=== PATIENT | female | born 1995 | race Caucasian/White ===

== ENCOUNTER 2017-02-16 07:41 | Emergency (ER) | payer OTHER ==
[~2017-02-16] VITALS: Ht 144.8 cm; Wt 43.5 kg
[2017-02-16 09:27] VITALS: BP 105/66
== END 2017-02-16 09:27 | disposition home or self-care (01) ==
LOC: ED 07:41
DX: B30.9 Viral conjunctivitis, unspecified (principal); J06.9 Acute upper respiratory infection, unspecified; J45.909 Unspecified asthma, uncomplicated

== ENCOUNTER 2017-02-21 06:35 | Emergency (ER) | payer OTHER ==
[2017-02-21 07:08] VITALS: BP 119/91
== END 2017-02-21 07:08 | disposition home or self-care (01) ==
LOC: ED 06:35
DX: J45.901 Unspecified asthma with (acute) exacerbation (principal); J06.9 Acute upper respiratory infection, unspecified

== ENCOUNTER 2017-03-15 05:21 | Emergency (ER) | payer OTHER ==
[2017-03-15 08:30] LABS: UA SPECIFIC GRAVITY >=1.030 (1.005-1.035); microscopic required? YES; urine erythrocyte NEGATIVE (NEGATIVE)
[2017-03-15 08:50] VITALS: BP 111/67
== END 2017-03-15 08:50 | disposition home or self-care (01) ==
LOC: ED 05:21
PROVIDERS: Emergency Medicine
DX: A59.01 Trichomonal vulvovaginitis (principal)
CPT/HCPCS: 87491; 87591

== ENCOUNTER 2017-09-19 16:39 | Emergency (ER) | payer OTHER ==
[~2017-09-19] VITALS: Ht 144.8 cm; Wt 42.2 kg
[2017-09-19 16:46] VITALS: BP 105/70
== END 2017-09-19 18:02 | disposition left against medical advice (07) ==
LOC: ED 16:39
DX: Z53.21 Procedure and treatment not carried out due to patient leaving prior to being seen by health care provider (principal)

== ENCOUNTER 2017-09-19 18:21 | Emergency (ER) | payer OTHER ==
[~2017-09-19] VITALS: Ht 144.8 cm; Wt 42.2 kg
[2017-09-19 18:32] VITALS: BP 106/65
== END 2017-09-19 22:02 | disposition home or self-care (01) ==
LOC: ED 18:21
DX: N39.0 Urinary tract infection, site not specified (principal); G43.909 Migraine, unspecified, not intractable, without status migrainosus; J45.909 Unspecified asthma, uncomplicated; N94.6 Dysmenorrhea, unspecified
CPT/HCPCS: J0696; J1885; Q0162

== ENCOUNTER 2017-10-11 03:57 | Emergency (ER) | payer OTHER ==
[2017-10-11 04:14] VITALS: BP 105/73
== END 2017-10-11 05:10 | disposition left against medical advice (07) ==
LOC: ED 03:57
DX: Z53.21 Procedure and treatment not carried out due to patient leaving prior to being seen by health care provider (principal)

== ENCOUNTER 2017-10-12 14:57 | Emergency (ER) | payer OTHER ==
[2017-10-12 14:59] VITALS: BP 135/89
== END 2017-10-12 16:04 | disposition home or self-care (01) ==
LOC: ED 14:57
DX: J02.9 Acute pharyngitis, unspecified (principal); G43.909 Migraine, unspecified, not intractable, without status migrainosus; K04.01 Reversible pulpitis; J45.909 Unspecified asthma, uncomplicated
CPT/HCPCS: J1885; J2765

== ENCOUNTER 2017-10-25 08:25 | Emergency (ER) | payer OTHER ==
[~2017-10-25] VITALS: Ht 144.8 cm; Wt 42.2 kg
[2017-10-25 11:45] VITALS: BP 97/56
== END 2017-10-25 11:45 | disposition home or self-care (01) ==
LOC: ED 08:25
DX: S29.012A Strain of muscle and tendon of back wall of thorax, initial encounter (principal); W18.39XA Other fall on same level, initial encounter; Y93.02 Activity, running; Y92.89 Other specified places as the place of occurrence of the external cause; Y99.8 Other external cause status; N39.0 Urinary tract infection, site not specified
CPT/HCPCS: J0696; J1885

== ENCOUNTER 2018-01-06 02:23 | Emergency (ER) | payer OTHER ==
[~2018-01-06] VITALS: Ht 144.8 cm; Wt 43.1 kg
[2018-01-06 02:28] VITALS: Ht 144.8 cm; Wt 43.1 kg
[2018-01-06 02:55] VITALS: BP 119/76
== END 2018-01-06 02:55 | disposition home or self-care (01) ==
LOC: ED 02:23
DX: M54.2 Cervicalgia (principal)

== ENCOUNTER 2018-02-21 18:37 | Emergency (ER) | payer OTHER ==
[~2018-02-21] VITALS: Ht 144.8 cm; Wt 43.5 kg
[2018-02-21 19:17] VITALS: Ht 144.8 cm; Wt 43.5 kg
[2018-02-21 21:36] LABS: BASOPHIL % 0.3 % (0-2); PLATELET COUNT 246 x10^3mcL (130-400); RED CELL DISTRIBUTION WIDTH 15.5 % (11.5-14.5)
[2018-02-21 21:57] LABS: microscopic required? YES; urine erythrocyte NEGATIVE (NEGATIVE)
[2018-02-21 22:07] LABS: CALCIUM 8.3 mg/dL (8.5-10.1); CARBON DIOXIDE 28.7 mmol/L (21-32); CHLORIDE SERUM 103 mmol/L (98-107); CREATININE SERUM 0.8 mg/dL (0.6-1.0); GFR1 > 60 mL/min; GLUCOSE SERUM 105 mg/dL (74-106); POTASSIUM SERUM 3.9 mmol/L (3.5-5.1); SODIUM SERUM 135 mmol/L (136-145)
[2018-02-21 22:28] VITALS: BP 108/72
== END 2018-02-21 23:41 | disposition home or self-care (01) ==
LOC: ED 18:37
PROVIDERS: Emergency Medicine
DX: N39.0 Urinary tract infection, site not specified (principal); R07.81 Pleurodynia; J45.909 Unspecified asthma, uncomplicated
CPT/HCPCS: 36415

== ENCOUNTER 2018-12-01 11:15 | Emergency (ER) | payer OTHER ==
[~2018-12-01] VITALS: Ht 144.8 cm; Wt 40.5 kg
[2018-12-01 11:18] VITALS: BP 133/86; Ht 144.8 cm; Wt 40.5 kg
== END 2018-12-01 12:49 | disposition home or self-care (01) ==
LOC: ED 11:15
DX: K02.9 Dental caries, unspecified (principal); K08.89 Other specified disorders of teeth and supporting structures; J45.909 Unspecified asthma, uncomplicated
CPT/HCPCS: J1885

== ENCOUNTER 2019-02-15 12:02 | Emergency (ER) | payer OTHER ==
[~2019-02-15] VITALS: Ht 144.8 cm; Wt 42.2 kg
[2019-02-15 12:04] VITALS: Ht 144.8 cm; Wt 42.2 kg
[2019-02-15 12:33] LABS: BASOPHIL % 0.3 % (0-2); PLATELET COUNT 244 x10^3mcL (130-400)
[2019-02-15 12:36] LABS: CALCIUM 8.3 mg/dL (8.5-10.1); CARBON DIOXIDE 30.5 mmol/L (21-32); CHLORIDE SERUM 103 mmol/L (98-107); CREATININE SERUM 0.9 mg/dL (0.6-1.0); GFR1 > 60 mL/min; GLUCOSE SERUM 126 mg/dL (74-106); POTASSIUM SERUM 4.2 mmol/L (3.5-5.1); SODIUM SERUM 138 mmol/L (136-145)
[2019-02-15 12:41] LABS: ALKALINE PHOSPHATASE 154 U/L (46-116); ALT/SGPT 68 U/L (14-59); AST/SGOT 45 U/L (15-37); TOTAL PROTEIN, SERUM 6.9 g/dL (6.4-8.2)
[2019-02-15 12:51] LABS: RED CELL DISTRIBUTION WIDTH 17.6 % (11.5-14.5)
[2019-02-15 12:54] LABS: ALBUMIN 2.7 g/dL (3.4-5.0)
[2019-02-15 13:27] VITALS: BP 107/60
[2019-02-15 13:29] LABS: BILIRUBIN TOTAL 0.55 mg/dL (0.20-1.00)
== END 2019-02-15 13:27 | disposition home or self-care (01) ==
LOC: ED 12:02
PROVIDERS: Emergency Medicine
DX: J18.9 Pneumonia, unspecified organism (principal); R74.0 Nonspecific elevation of levels of transaminase and lactic acid dehydrogenase [LDH]; J45.909 Unspecified asthma, uncomplicated; Z86.2 Personal history of diseases of the blood and blood-forming organs and certain disorders involving the immune mechanism
CPT/HCPCS: 36415; 87804; Q0092

== ENCOUNTER 2019-02-16 05:36 | Inpatient (IN) | payer OTHER ==
[~2019-02-16] VITALS: Ht 144.8 cm; Wt 44.7 kg
[2019-02-16 05:39] VITALS: Ht 144.8 cm; Wt 44.7 kg
--- NOTE | 2019-02-16 05:44 | NUR ---
PATIENT WAS BROUGHT IN BY EMS WITH COMPLAINT OF SHORTNESS OF BREATH AND COUGHING. PATIENT SEEN WITH BREATHING TREATMENT IN [facility] AND COUGHING , NON PRODUCTIVE COUGH.
--- NOTE | 2019-02-16 05:48 | NUR ---
PATIENT SEEN WITH COMPLAINT OF SHORTNESS OF BREATH. PATIENT REPORTS SHE WAS SEEN BY MD AND DX PNEUMONIA AND WAS STARTED ON ANTIBIOTIC YESTERDAY. MD AT THE BEDSIDE.
--- NOTE | 2019-02-16 06:12 | NUR ---
PORTABLE CHEST XRAY WAS DONE. DOCK SUPERINTENDENT AT THE BEDSIDE, BLOOD AND BLOOD CULTURES WERE DONE. PATIENT CONTINUE TO HAVE FREQUENT BOUTS OF COUGHING. OXYGEN SAT DROPS WHEN COUGHING. PATIENT DOES NOT WANT THE NASAL CANNULAR, 6 L O2 GIVEN VIA THE MASK.
[2019-02-16 06:30] LABS: BASOPHIL % 0.2 % (0-2); PLATELET COUNT 258 x10^3mcL (130-400)
[2019-02-16 06:48] LABS: CALCIUM 8.9 mg/dL (8.5-10.1); CARBON DIOXIDE 27.7 mmol/L (21-32); CHLORIDE SERUM 107 mmol/L (98-107); CREATININE SERUM 0.9 mg/dL (0.6-1.0); GFR1 > 60 mL/min; GLUCOSE SERUM 116 mg/dL (74-106); POTASSIUM SERUM 4.5 mmol/L (3.5-5.1); SODIUM SERUM 141 mmol/L (136-145)
[2019-02-16 06:52] LABS: ALKALINE PHOSPHATASE 145 U/L (46-116); ALT/SGPT 62 U/L (14-59); AST/SGOT 42 U/L (15-37); BILIRUBIN TOTAL 0.42 mg/dL (0.20-1.00); TOTAL PROTEIN, SERUM 6.6 g/dL (6.4-8.2)
[2019-02-16 06:58] LABS: ALBUMIN 2.5 g/dL (3.4-5.0)
--- NOTE | 2019-02-16 06:58 | NUR ---
Pt SPO2 80% ON RA, HHN TX ADMINISTERED AND ABG DRAWN. WILL ENDORSE TO DAY SHIFT RT. RN AT BEDSIDE. PERSISTENT NON PRODUCTIVE COUGH NOTED.
[2019-02-16 07:05] LABS: C REACTIVE PROTEIN 7.6 mg/dL (<=0.9)
[2019-02-16 07:08] LABS: CK-MB 0.5 ng/mL (0-3.6)
--- NOTE | 2019-02-16 07:08 | NUR ---
SALINE BOLUS IS INFUSING, ANTIBUIOTIC IS INFUSING. BREATHING TREATMENT IS IN PROGRESS.
[2019-02-16 07:09] LABS: RED CELL DISTRIBUTION WIDTH 17.5 % (11.5-14.5)
--- NOTE | 2019-02-16 07:15 | NUR ---
RECIEVED REPORT TO CONTINUE CARE FROM DILAN DOMINGO.
[2019-02-16 07:20] LABS: T3 TOTAL 0.87 ng/mL
[2019-02-16 07:21] LABS: FREE T4 1.1 ng/dL (0.76-1.46); FREE THYROXINE INDEX 2.4 ug/dL (1.4-4.5)
[2019-02-16 08:31] LABS: MAGNESIUM 1.7 mg/dL (1.8-2.4); PHOSPHOROUS 2.9 mg/dL (2.5-4.9)
[2019-02-16 08:32] LABS: CHOLESTEROL/HDL RATIO 5.1
--- NOTE | 2019-02-16 08:55 | NUR ---
PATIENT SITTING UPRIGHT ON GURNEY- BREATHING EVEN AND LABORED. PATIENT DENIES WANTING TO PLACE 02 BACK ON. ADVISED PATIENT THAT I NEEDED A URINE SAMPLE. UNABLE TO PROVIDE AT THIS TIME. WILL CONTINUE TO MONITOR. SIDE RAILS UP, GURNEY IN LOW POSITION.
--- NOTE | 2019-02-16 09:05 | NUR ---
CALLED FOR RESPIRTORY PER DR. TOLENTINO FOR BIPAP. RESPIRATORY BEDSIDE APPLYING MASK.
--- NOTE | 2019-02-16 09:50 | NUR ---
PATIENT RESTING SINCE BIPAP WAS APPLIED. WILL CONTINUE TO MONITOR.
--- NOTE | 2019-02-16 10:31 | NUR ---
PATIENT RESTING COMFORTABLY- WILL CONTINUE TO MONITOR.
--- NOTE | 2019-02-16 11:28 | NUR ---
ADMITTING MD AT BEDSIDE FOR H&P.
--- NOTE | 2019-02-16 11:59 | NUR ---
PATIENT ABLE TO SPEAK WITH FULL SENTENCES, TRIAL WITHOUT BIPAP AND IS TOLERATING ROOM AIR AT THIS TIME, VERBALIZED FEELING BETTER, NO S/SOF ACUTE DISTRESS NOTED. WILL CONTINUE TO MONITOR
--- NOTE | 2019-02-16 12:54 | NUR ---
PATIENT FINISHED EATING LUNCH. BREATHING EVEN AND UNLABORED. NO S/S OF DISTRESS NOTED. WILL CONTINUE TO MONITOR.
--- NOTE | 2019-02-16 14:15 | NUR ---
RECEIVED REPORT FROM CHRISTY KONG
--- NOTE | 2019-02-16 14:16 | NUR ---
PROVIDED REPORT TO DILAN KAMARA FOR CONTINUED CARE OF PATIENT.
[2019-02-16 14:43] VITALS: BP 90/37
--- NOTE | 2019-02-16 14:47 | NUR ---
RECEIVED PT FROM ED VIA OLGA. ORIENTED PT TO ROOM AND SURROUNDINGS. IV NOTED TO LAC PATENT AND INTACT. TELE 4 PLACED ON PT READING NSR. INSTRUCTED PT ON THE USE OF CALL LIGHT FOR ASSISTANCE. ENDORSED PT TO PRIMARY NURSE ASAD
--- NOTE | 2019-02-16 15:08 | NUR ---
PT SITTING UP IN BED IN HIGH FOWLERS. RESPIRATIONS EQUAL AND UNLABORED ON 3L NC. PT STATES NC IS HELPING WITH BREATHING. PT STATES SHE FEELS DROWSY. DR. HOLBROOK AT BEDSIDE. WILL CONTINUE TO MONITOR. CALL LIGHT IN REACH. BED IN LOWEST POSITION.
--- NOTE | 2019-02-16 15:18 | NUR ---
PT SITTING UP IN BED. DROWSY BUT AROUSABLE TO VOICE. GIVEN MUCINEX PO. TOLERATED WELL. RESPIRATIONS EQUAL AND UNLABORED ON 3L NC. PT STATES SOB HAS IMPROVED SINCE BEING PLACED ON NC. WILL CONTINUE TO MONITOR. CALL LIGHT IN REACH. BED IN LOWEST POSITION.
[2019-02-16 15:51] VITALS: BP 90/37
--- NOTE | 2019-02-16 17:25 | NUR ---
PT SITTING UP IN BED. RESPIRATIONS EQUAL AND UNLABORED ON 3L NC. PT SOB WITH WALKING TO BATHROOM. PLACED BACK ON NC 3L. PT STATES SHE JUST FEELS SOB WHEN WALKING AND TALKING. IV TO LAC FLUSHED WELL. IV ANTIBIOTICS INFUSING ORDERED. GIVEN PO MEDS. TOLERATED WELL. WILL CONTINUE TO MONITOR. CALL LIGHT IN REACH. BED IN LOWEST POSITION.
--- NOTE | 2019-02-16 19:20 | NUR ---
RECEIVED REPORT FROM ASAD KONG. ASSUMING ALL CARE
--- NOTE | 2019-02-16 19:47 | NUR ---
RECEIVED PT LAYING IN BED. PT IS A/OX4. DROWSY AT THIS TIME. ABLE TO FOLLOW COMMANDS. PERRLA NOTED BILAT. EENT FREE OF DISCHARGE. ORAL MUCOSA PINK AND MOIST. NO JVD NOTED. BREATHING IS E/U ON 3 L NC. LUNGS SOUND CLEAR TO BUL AND DIMIN TO BLL. SYMMETRICAL CHEST EXPANSION NOTED. DENIES ANY SOB. PT ON TELE #4 READING NSR. S1/S2 HEART SOUNDS AUSCULTATED. CHEST WALL EQUAL AND SYMMETRICAL. DENIES CP. PALPABLE PULSES X4 EXTREMITIES. SKIN IS WARM AND DRY. LAC IV SALINE LOCKED. NO EDEMA NOTED. SLIGHT GENERALIZED WEAKNESS. ACTIVE FULL ROM X4 EXTRIMITIES. NO JOINT SWELLING/DEFORMITY NOTED. PT IS ON REGULAR DIET. NO N/V NOTED. ABD IS SOFT, FLAT, NONTENDER TO PALPATION. BOWEL SOUNDS ACTIVE X4 QUADRANTS. NO BM NOTED. PT VOIDS FREELY. NO LABIAL EDEMA OR VAGINAL DISCHARGE NOTED. PT MADE AWARE A URINE SAMPLE IS STILL NEEDED, PT VERBALIZED UNDERSTANDING. SKIN IS INTACT. PT ABLE TO REPOSITION SELF INDEPENDENTLY. PT IS CALM AT THIS TIME. BED IN LOW POSITION. CALL LIGHT IN REACH. WILL CONT TO MONITOR
[2019-02-16 20:30] VITALS: BP 93/50
--- NOTE | 2019-02-16 23:15 | NUR ---
PT IS SLEEPING, EASILY AROUSABLE. RISE AND FALL OF CHEST NOTED. PT ON 3 L NC. NO S/S OF RESP DISTRESS NOTED. BED IN LOW POSITION. CALL LIGHT IN REACH. WILL CONT TO MONITOR
--- NOTE | 2019-02-17 02:00 | NUR ---
RISE AND FALL OF CHEST NOTED. NO S/S OF ACUTE DISTRESS NOTED. IV REMAINS SALINE LOCKED. BREATHING IS E/U ON 3 L NC. WILL CONT TO MONITOR
--- NOTE | 2019-02-17 05:35 | NUR ---
PT IS SLEEPING, AROUSABLE. PT ON 3 L NC STATTING 100%. NO S/S OF RESP DISTRESS NOTED. RISE AND FALL OF CHEST NOTED. IV REMAINS SALINE LOCKED. NO S/S OF ACUTE DISTRESS NOTED. BED IN LOW POSITION. CALL LIGHT IN REACH. WILL CONT TO MONITOR
[2019-02-17 05:50] VITALS: BP 95/47
--- NOTE | 2019-02-17 07:05 | NUR ---
REPORT GIVEN TO KAELYN KONG FOR CONTINUITY OF CARE. ALL QUESTIONS/CONCERNS ADDRESSED. ENDORSING ALL CARE
[2019-02-17 07:30] LABS: CALCIUM 8.3 mg/dL (8.5-10.1); CHLORIDE SERUM 106 mmol/L (98-107); CREATININE SERUM 0.8 mg/dL (0.6-1.0); GFR1 > 60 mL/min; GLUCOSE SERUM 148 mg/dL (74-106); POTASSIUM SERUM 4.5 mmol/L (3.5-5.1); SODIUM SERUM 140 mmol/L (136-145)
[2019-02-17 07:38] LABS: BASOPHIL % 0.2 % (0-2); PLATELET COUNT 230 x10^3mcL (130-400)
--- NOTE | 2019-02-17 08:00 | NUR ---
RECEIVED PATIENT SLEEPY BUT ARROUSABLE. STILL WITH DRY UNPRODUCTIVE COUGH AND HAS BEE OON IV ANTIBIOTICS AND LASIX AND SOLUMEDROL. THE WBC THIS AM AT 14 AND ADVIWSD THE RESIDENT OF THIS. PATIENT AHS BEEN ON ZOAYN AND NO ADVERSE REACTION SEEN. VITALS AT THIS TIME AT 98.0, S60, 18, 98/47, 100%. PATIENT AHS BEEN WITH GLUCOSE AT 148, ESR AT 36, CA AT 8.3. THE MAGNESIUM WAS COVERED. SHE DENIES PAIN AND ENCOURAGED FLUIDS AND DEEP BREATHING TOLERATED. PATIENT HAS BILATERAL PULMONARY LUNG INFILTRAES AND IT IS BETTER TO THE RIGHT THAN TO THE LEFT.
--- NOTE | 2019-02-17 09:00 | NUR ---
INFORMED THE HEAD OF MOBILE OF THE WBC PER THE SEPSIS PROTOCAL. AWAITING ANY ORDERS AT THIS TIME. THE HEAD OF MOBILE DOES NOT SEEM CONCERNED AT THIS TIME THE PATIENT HAS BEEN WITH NO FEVER AND HAD BEEN TAKING IN FLUIDS. WILL CONTINUE TO MONITOR .
--- NOTE | 2019-02-17 10:34 | NUR ---
PATIENT OOB AND WITH A DRY COUGH AT THIS TIME. WAS SEEN BY THE RESIDENT AND THE DR SEBASTIAN. PATIENT HAS BEEN WITH CRY COUGH AND ENCOURAT3 TO DEEP BREATH AND DRINK FLUIDS. HHN CONTINUED AND PATIENT HAS BEEN NOTED TO HAVE BILATERAL PNUMEUMONIA. PATIENT HAS BEEN ON IV ANTIBIOTICS AND SO FAR NO ADVERSE REACTION. RECEIVED URINE FROM THE PATIENT AND MELINDA SEND TO THE LAB INDICATED.
[2019-02-17 13:31] LABS: RED CELL DISTRIBUTION WIDTH 18.4 % (11.5-14.5)
[2019-02-17 14:21] VITALS: BP 91/46
--- NOTE | 2019-02-17 15:00 | NUR ---
YOUNG MALE AT [facility] AND SUPPORTIVE WITH CARE. THE GRANDMOTHER CALLED AND ADVISE SALVADOR MCGUIRE. SHE HAS BEEN SLEEPING ON AND OFF. SHE ATE SOME AND FELL ASLEEP WHILE EATTING SEVERAL TIMES. NO COMPLAINTS OF PAIN AND CONTINUED ON IV ANTIBIOTICS WITH NO ADVERSE REACTION.
--- NOTE | 2019-02-17 15:02 | NUR ---
ATE SOME OF THE AFTERNOON MEAL AND ENCOURAGE TO DRINK PLENTY OF FLUIDS. THE COUGH IS STILL NON PRODUCTIVE..
[2019-02-17 15:33] LABS: microscopic required? NO
[2019-02-17 15:48] LABS: UA SPECIFIC GRAVITY 1.025 (1.005-1.035); urine erythrocyte NEGATIVE (NEGATIVE)
[2019-02-17 16:24] LABS: AMPHETAMINE QUAL UR POSITIVE (See below)
[2019-02-17 17:21] VITALS: BP 84/34
--- NOTE | 2019-02-17 17:59 | NUR ---
GIVING BOLUS THE BP IS SO LOW. ORDERED A LITER BOLUS. PATIENT SO FAR TOLERATED WELL.
--- NOTE | 2019-02-17 20:04 | NUR ---
Resting in bed with eyes closed. Verbally responsive. No respiratory distress noted on 02 2lpm via n/c. Denies n/v. Denies pain at this time. Will cont.to monitor. Call light within reach. Friend visiting.
[2019-02-17 22:24] VITALS: BP 105/47
--- NOTE | 2019-02-18 05:04 | NUR ---
Afebrile. No significant change in condition noted. Denies pain. No cough or congestion noted. Cont.on IV zosyn. Ambulating. In no apparent distress.
[2019-02-18 05:58] LABS: PLATELET COUNT 251 x10^3mcL (130-400)
[2019-02-18 06:37] LABS: RED CELL DISTRIBUTION WIDTH 18.2 % (11.5-14.5)
[2019-02-18 06:39] LABS: CHLORIDE SERUM 106 mmol/L (98-107); CREATININE SERUM 0.8 mg/dL (0.6-1.0); GFR1 > 60 mL/min; GLUCOSE SERUM 156 mg/dL (74-106); POTASSIUM SERUM 4.3 mmol/L (3.5-5.1); SODIUM SERUM 139 mmol/L (136-145)
--- NOTE | 2019-02-18 08:00 | NUR ---
RECEIVED PATIENT ALERT AND ALBEL TO MAKE NEEDS KNOWN. SHE IS STILL ON AND OFF SLEEPY BUT SHE IS MUCH MORE RESPONSIVE TODAY. LUNGS ARE LESS CONGESTED AND THE COUGH IS NOT DRY AND SHE DENIES SOB. PATIENT HAS BEEN OOB AND TOLERATED WELL. SHE HAS TOELRATE DIET AN DFLUIDS WELL. SEEN BY THE FLAT BREAKDOWN PROCESSOR AND PLAN OF CARE IS SGHE TOLERATES NO O2 SHE WILL BE DISCHARGE HOME TODAY. VITALS STABLE AND NOTED LASB AND THE WBC AT 19.2 BUT ALSO NOTED HIWOT PTEIEN TON SOLUMEDROL DURING HER STAY. AWAITING COMPLETION OF ORDERS FOR DISCHARGE.
[2019-02-18 08:52] VITALS: BP 97/51
--- NOTE | 2019-02-18 12:00 | NUR ---
TOLERATED DIET AND DENIES ANY ACUTE SOB OR RESPIRATORY DISTERSS AT THIS TIME.
[2019-02-18] MEDS ORDERED: CLARITHROMYCIN500 M1 PO (12:01)
[2019-02-18 12:33] VITALS: BP 95/52
[2019-02-18 13:09] LABS: ATYPICAL LYMPH 5 %; BAND NEUTROPHIL 1 % (0-10); BASOPHIL 0 % (0-2); MONOCYTE 5 % (0-7); SEGMENTED NEUTROPHILS 86 % (37-75)
[2019-02-18 13:10] LABS: PLATELET MORPHOLOGY PLATELETS DECREASED; acanthocyte (spur cell) 3+; rbc morphology (normal/abnorm) ABNORMAL (NORMAL)
--- NOTE | 2019-02-18 14:07 | NUR ---
PATIENT HAS ORDER FOR DISCHARGE. PATIENT HAS BEEN MORE ALERT TODAY AND NO ACUTE DISTRESS ON THE RESPIRATORY ISSUES. WILL BE SENDING HOME TODAY ORDERED. RECEIVE DOSING OF ZOSYN AND SOLUMEDROL ALONG WITH MUCOMIST PO.
[2019-02-18 14:21] VITALS: BP 95/52
--- NOTE | 2019-02-18 16:28 | NUR ---
GAVE PRESCRIPTIONS AND DISCHARGE INSTRUCTIONS INDICATED. PATIENT TO FOLLOW UP WITH HER PRIMARY AND OR RETURNO THE EMERGNECY ROOM OR URGENT CARE FOR TREATMENT IF THE SYMPTOMS PERSIST.
--- NOTE | 2019-02-18 17:23 | NUR ---
PATIENT DISCHARGE TO HOME WITH ALL BELONGINGS. PATIENT WITH FAMILY AND SIGNIFICANT OTHER.
== END 2019-02-18 17:15 | disposition home or self-care (01) | DRG 720 ==
LOC: ED 05:36 → DU 07:07
PROVIDERS: Emergency Medicine; General Practice; Specialist; ADMIT Internal Medicine
DX: A41.9 Sepsis, unspecified organism (principal); J96.01 Acute respiratory failure with hypoxia; J69.0 Pneumonitis due to inhalation of food and vomit; E43 Unspecified severe protein-calorie malnutrition; J45.901 Unspecified asthma with (acute) exacerbation; E83.42 Hypomagnesemia; R73.03 Prediabetes; F15.90 Other stimulant use, unspecified, uncomplicated; R74.0 Nonspecific elevation of levels of transaminase and lactic acid dehydrogenase [LDH]; Z90.49 Acquired absence of other specified parts of digestive tract; Z83.52 Family history of ear disorders; Z68.24 Body mass index [BMI] 24.0-24.9, adult
CPT/HCPCS: 36600; 84439; 87804; 94150; J1644; J1940; J2543; J2920; J2930; J3370; J7030; J7050; J7613; J7620; J7626; J7644; Q0092

== ENCOUNTER 2020-03-19 18:44 | Emergency (ER) | payer OTHER ==
[~2020-03-19] VITALS: Ht 144.8 cm; Wt 41.3 kg
[~2020-03-19 18:44] MED LIST: CLARITHROMYCIN500 M1 PO
[2020-03-19 18:48] VITALS: Ht 144.8 cm; Wt 41.3 kg
[2020-03-19 19:36] VITALS: BP 126/77
== END 2020-03-19 19:37 | disposition home or self-care (01) ==
LOC: ED 18:44
DX: M79.632 Pain in left forearm (principal); F15.10 Other stimulant abuse, uncomplicated; R22.32 Localized swelling, mass and lump, left upper limb; J45.909 Unspecified asthma, uncomplicated; Z86.2 Personal history of diseases of the blood and blood-forming organs and certain disorders involving the immune mechanism
CPT/HCPCS: 90715

== ENCOUNTER 2020-07-31 16:13 | Emergency (ER) | payer OTHER ==
[~2020-07-31] VITALS: Ht 149.9 cm; Wt 45.4 kg
[2020-07-31 16:54] VITALS: BP 101/66; Ht 149.9 cm; Wt 45.4 kg
== END 2020-08-01 03:29 | disposition left against medical advice (07) ==
LOC: ED 16:13
DX: Z53.21 Procedure and treatment not carried out due to patient leaving prior to being seen by health care provider (principal)

== ENCOUNTER 2020-08-19 17:10 | Emergency (ER) | payer OTHER ==
[~2020-08-19] VITALS: Ht 144.8 cm; Wt 39.5 kg
[2020-08-19 17:24] VITALS: Ht 144.8 cm; Wt 39.5 kg
[2020-08-19 18:35] VITALS: BP 106/73
== END 2020-08-19 18:35 | disposition home or self-care (01) ==
LOC: ED 17:10
DX: S20.212A Contusion of left front wall of thorax, initial encounter (principal); R10.9 Unspecified abdominal pain; J45.909 Unspecified asthma, uncomplicated; F15.10 Other stimulant abuse, uncomplicated; Z86.2 Personal history of diseases of the blood and blood-forming organs and certain disorders involving the immune mechanism; W50.1XXA Accidental kick by another person, initial encounter; Y93.66 Activity, soccer; Y92.89 Other specified places as the place of occurrence of the external cause; Y99.8 Other external cause status

== ENCOUNTER 2020-08-21 02:01 | Emergency (ER) | payer OTHER ==
[~2020-08-21] VITALS: Ht 144.8 cm; Wt 39.1 kg
[2020-08-21 03:40] VITALS: BP 108/62
== END 2020-08-21 03:46 | disposition home or self-care (01) ==
LOC: ED 02:01
DX: S92.424A Nondisplaced fracture of distal phalanx of right great toe, initial encounter for closed fracture (principal); J45.909 Unspecified asthma, uncomplicated; F15.10 Other stimulant abuse, uncomplicated; Z86.2 Personal history of diseases of the blood and blood-forming organs and certain disorders involving the immune mechanism; W22.8XXA Striking against or struck by other objects, initial encounter; Y93.01 Activity, walking, marching and hiking; Y92.89 Other specified places as the place of occurrence of the external cause; Y99.8 Other external cause status
CPT/HCPCS: Q0092

== ENCOUNTER 2020-08-22 09:38 | Emergency (ER) | payer OTHER ==
[~2020-08-22] VITALS: Ht 144.8 cm; Wt 39.9 kg
[2020-08-22 09:57] VITALS: Ht 144.8 cm; Wt 39.9 kg
[2020-08-22 10:50] VITALS: BP 104/65
== END 2020-08-22 10:53 | disposition home or self-care (01) ==
LOC: ED 09:38
DX: S50.12XA Contusion of left forearm, initial encounter (principal); S09.8XXA Other specified injuries of head, initial encounter; R45.6 Violent behavior; J45.909 Unspecified asthma, uncomplicated; Y04.8XXA Assault by other bodily force, initial encounter; Y93.89 Activity, other specified; Y92.89 Other specified places as the place of occurrence of the external cause; Y99.8 Other external cause status

== ENCOUNTER 2020-09-05 23:48 | Emergency (ER) | payer OTHER ==
[~2020-09-05] VITALS: Ht 147.3 cm; Wt 40.4 kg
[2020-09-06 00:11] VITALS: Ht 147.3 cm; Wt 40.4 kg
[2020-09-06 01:25] VITALS: BP 106/63
[2020-09-07 07:07] LABS: RAPID PLASMA REAGIN Non Reactive (Non Reactive)
== END 2020-09-06 01:25 | disposition home or self-care (01) ==
LOC: ED 23:48
PROVIDERS: Emergency Medicine
DX: J45.909 Unspecified asthma, uncomplicated (principal); Z11.3 Encounter for screening for infections with a predominantly sexual mode of transmission
CPT/HCPCS: 87491; 87591

== ENCOUNTER 2020-09-15 22:32 | Emergency (ER) | payer OTHER ==
[~2020-09-15] VITALS: Ht 144.8 cm; Wt 41.3 kg
[2020-09-15 22:38] VITALS: Ht 144.8 cm; Wt 41.3 kg
[2020-09-15 23:22] VITALS: BP 101/62
== END 2020-09-15 23:22 | disposition home or self-care (01) ==
LOC: ED 22:32
DX: N30.90 Cystitis, unspecified without hematuria (principal); J45.909 Unspecified asthma, uncomplicated; Z90.89 Acquired absence of other organs
CPT/HCPCS: 87491; 87591

== ENCOUNTER 2020-09-29 15:08 | Emergency (ER) | payer OTHER ==
[~2020-09-29] VITALS: Ht 144.8 cm; Wt 40.8 kg
[2020-09-29 15:25] VITALS: BP 117/80; Ht 144.8 cm; Wt 40.8 kg
== END 2020-09-29 15:46 | disposition left against medical advice (07) ==
LOC: ED 15:08
DX: Z53.21 Procedure and treatment not carried out due to patient leaving prior to being seen by health care provider (principal)

== ENCOUNTER 2020-11-11 01:47 | Emergency (ER) | payer OTHER ==
[~2020-11-11] VITALS: Ht 144.8 cm; Wt 40.4 kg
[2020-11-11 02:08] VITALS: BP 117/85; Ht 144.8 cm; Wt 40.4 kg
== END 2020-11-11 04:09 | disposition home or self-care (01) ==
LOC: ED 01:47
DX: R00.2 Palpitations (principal); F15.10 Other stimulant abuse, uncomplicated; J45.909 Unspecified asthma, uncomplicated; Z86.2 Personal history of diseases of the blood and blood-forming organs and certain disorders involving the immune mechanism; Z90.89 Acquired absence of other organs

== ENCOUNTER 2020-11-21 15:43 | Emergency (ER) | payer OTHER | END 2020-11-21 16:15 | disposition left against medical advice (07) | LOC: ED 15:43 | DX: Z53.21 Procedure and treatment not carried out due to patient leaving prior to being seen by health care provider (principal) ==